=== PATIENT | female | born 1985 ===

== ENCOUNTER 2017-04-22 01:05 | Emergency (ER) | payer MEDICAID, OTHER ==
[2017-04-22 01:31] VITALS: BP 115/79; PULSE 64; RESP 20; TEMP 97.6; O2SAT 97
--- NOTE | 2017-04-22 04:27 | C.PDOC ---
History Of Present Illness Patient is a 31 y/o female, with Hx cervical and uterine CA, presents to the ED with a complaint of frontal intermittent headache with periods of blurry vision and what feels like loss of vision intermittently for the last 2 days. Patient denies any fever. No other physical complaints at this time. Time Seen by Provider: 04/22/17 04:06 Chief Complaint (Nursing): Headache History Per: Patient History/Exam Limitations: no limitations Onset/Duration Of Symptoms: Days (2 days), Intermittent Episodes Current Symptoms Are (Timing): Still Present Associated Symptoms: Blurred Vision, Other ("loss of vision") Recent travel outside of the [place]: No Past Medical History Reviewed: Historical Data, Nursing Documentation, Vital Signs Vital Signs: Last Vital Signs Temp 97.6 F 04/22/17 01:24 Pulse 64 04/22/17 01:24 Resp 20 04/22/17 01:24 BP 115/79 04/22/17 01:24 Pulse Ox 97 04/27/17 10:48 - Medical History Other PMH: uterine and cervical CA Surgical History: No Surg Hx Family History: States: No Known Family Hx - Social History Hx Tobacco Use: No Hx Alcohol Use: No Hx Substance Use: No - Immunization History Hx Tetanus Toxoid Vaccination: No Hx Influenza Vaccination: No Hx Pneumococcal Vaccination: No Review Of Systems Constitutional: Negative for: Fever Eyes: Positive for: Vision Change (blurry vision, what feels like "loss of vision") Neurological: Positive for: Headache Physical Exam - Physical Exam Appears: No Acute Distress Additional Physical Exam Comments: Patient unable to be physically examined due to elopement. ED Course And Treatment O2 Sat by Pulse Oximetry: 97 Progress Note: Head CT ordered. Tylenol ordered. Medical Decision Making Medical Decision Making: per RN, pt eloped from ED after I discussed plan was for tylenol and head ct, and was not examined. Disposition - Disposition Disposition: ELOPEMENT - ER ONLY Disposition Time: 04:40 Condition: STABLE Forms: [facility] (Senegalese) - Clinical Impression Clinical Impression: Headache - Scribe Statement The provider has reviewed the documentation as recorded by the Scribe Diann Grover All medical record entries made by the Scribe were at my direction and personally dictated by me. I have reviewed the chart and agree that the record accurately reflects my personal performance of the history, physical exam, medical decision making, and the department course for this patient. I have also personally directed, reviewed, and agree with the discharge instructions and disposition.
[2017-04-22] MEDS ORDERED: Albuterol-Ipratrop 3 mg / 0.5 (3 ml) UD ONE (13:50)
== END 2017-04-22 04:06 | disposition left against medical advice (07) ==
LOC: C.ER 01:05
DX: R51 Headache (principal)